=== PATIENT | male | born 1940 | race Caucasian/White ===

== ENCOUNTER 2016-11-05 12:02 | Day surgery (SDC) | payer OTHER ==
[2016-11-02 10:14] LABS: HEMATOCRIT 40.9 % (40.0-51.0)
[2016-11-02 10:19] LABS: BUN (BLOOD UREA NITROGEN) 31 MG/DL (6-23); CALCIUM, SERUM 8.9 MG/DL (8.5-10.4); CHLORIDE, SERUM 105 MMOL/L (96-112); CO2 (CARBON DIOXIDE) 28 MMOL/L (24-34); CREATININE 1.65 MG/DL (0.70-1.30); GFR AFRICAN AMERICAN 47 ML/MIN (>=60); GFR NON AFRICAN AMERICAN 40 ML/MIN (>=60); GLUCOSE, SERUM 104 MG/DL (60-99); POTASSIUM, SERUM 4.2 MMOL/L (3.5-5.3); SODIUM, SERUM 144 MMOL/L (135-148)
--- NOTE | ~2016-11-05 | OP ---
Record Of Operation [facility] [address] [place]. [address] NAME: LEO MATHEW : 44 STATUS : REG [facility] [place] PAT#: [id number] AGE: 76 ADM/REG DATE : 11/05/16 MR#: [id number] REPORT SERV DATE: 11/06/16 DICTATED BY: GROVER HARO DATE: 11/05/16 REPORT STATUS : Draft TRANSCRIBED BY: MODL DATE: 11/05/16 DATE OF PROCEDURE: 11/05/2016 PREOPERATIVE DIAGNOSIS: Right thyroid nodule suspicious for carcinoma on fine needle aspiration biopsy. POSTOPERATIVE DIAGNOSES: Two right side follicular nodules of low probability for carcinoma. PROCEDURE: Right hemithyroidectomy and isthmusectomy with NIM monitoring SURGEON: Grover Haro M.D. ANESTHESIA: General. COMPLICATIONS: None. COUNTS: All counts correct following the procedure. ESTIMATED BLOOD LOSS: 10 mL. PREOPERATIVE INFORMED CONSENT: We discussed risks and benefits of surgery including, but not limited to bleeding, infection, possible superior and/or recurrent laryngeal nerve injuring with resulting in temporary or permanent deficits, possible postoperative hypoparathyroidism, possible need for reoperation for completion thyroidectomy, possible postoperative hypoparathyroidism, he understands the risks and benefits of surgery and consent is on chart. OPERATIVE FINDINGS: The patient noted to have two lesions in the right lobe of the thyroid, also had pulmonary intraoperative PTH 154, right superior parathyroid gland was slightly enlarged and this was biopsied and showed some cellular gland but the serum calcium was 8.9, so at this point superior parathyroid we put 2 to 3 clips on if for later identification if necessary, frozen section came back consistent with benign follicular nodule, so procedure was abated at this point. DETAILS OF PROCEDURE: The patient was brought to the operating suite and placed on the operating table in the supine position. General endotracheal anesthesia was initiated without incident using a NIM monitoring endotracheal tube. The NIM monitoring electrode was placed on the patient. The NIM monitor was calibrated and noted to be functioning properly. Following this, a transverse incision was marked out 2 fingerbreadths above the sternal notch and injected with 1% lidocaine with 1:100,000 epinephrine for hemostasis. Following this, a #15-blade scalpel was used to make an incision down to the underlying subcutaneous tissues. Electrocautery was used to perform sharp dissection down through the platysma layer. The midline fascia was divided using electrocautery. The strap muscles were retracted laterally. Dissecting along the right capsular plane, the middle thyroid vein was dissected out and divided using the harmonic scalpel. The inferior pole vessels were Record Of Operation [facility] [address] [place]. [address] NAME: LEO MATHEW : 44 STATUS : REG [facility] [place] PAT#: [id number] AGE: 76 ADM/REG DATE : 11/05/16 MR#: [id number] REPORT SERV DATE: 11/06/16 DICTATED BY: GROVER HARO DATE: 11/05/16 REPORT STATUS : Draft TRANSCRIBED BY: BERNADETTE DATE: 11/05/16 dissected out and dissecting in the tracheoesophageal groove, the recurrent laryngeal nerve was identified and confirmed using the NIMH stimulator and preserved as it was followed up superiorly up to its insertion into the cricothyroid notch. The inferior pole vessels were then divided at the level of the capsule of the thyroid using the harmonic scalpel. The superior pole vessels were dissected out and the superior laryngeal nerve was identified and confirmed using the NIMH stimulator and preserved. The superior pole vessels were divided using the harmonic scalpel. The gland was further retracted medially and Lombardi's ligament was divided using the harmonic scalpel, bipolar cautery, and a #15-blade scalpel. The gland was further dissected off the anterior tracheal wall and divided just to the right of midline using the harmonic scalpel. The specimen was inspected and there was no evidence of any subcapsular parathyroid. The right side of the neck was irrigated with sterile saline and suctioned until clear. NIM monitor was used to stimulate the superior and recurrent laryngeal nerves and both were noted to be functioning properly. Following this, the platysmal layer was closed using a running 3-0 Vicryl suture. The skin was closed using a running 4-0 Prolene and subcuticular closure followed with Benzoin, Steri-Strips and Tegaderm dressing. The patient was awakened from anesthesia and taken to the recovery room in stable condition. JORGE/BERNADETTE Grover Haro M.D. / [id number] CC: Marguerite Velazco M.D.
[~2016-11-05 12:02] MED LIST: ACET500CAP PO; CARDU4 PO; L40 PO; NORV25 PO; PRIN20 PO; Z300 PO
[2016-11-05 14:58] LABS: PTH (INTRAOPERATIVE) 154.4 PG/ML (10.0-65.0); PTH TAT 0 Hrs 00 Mins
[2016-11-05 19:02] LABS: PTH (INTRAOPERATIVE) 74.5 PG/ML (10.0-65.0); PTH TAT 0 Hrs 27 Mins
== END 2016-11-05 23:59 | disposition home or self-care (01) ==
LOC: SDC 12:02
PROVIDERS: Otolaryngology
PROC: 0GTH0ZZ Resection of Right Thyroid Gland Lobe, Open Approach (ICD-10-PCS; principal; 2016-11-05 13:45)
DX: E04.1 Nontoxic single thyroid nodule (principal); I12.9 Hypertensive chronic kidney disease with stage 1 through stage 4 chronic kidney disease, or unspecified chronic kidney disease; N18.9 Chronic kidney disease, unspecified; N40.0 Benign prostatic hyperplasia without lower urinary tract symptoms; G47.30 Sleep apnea, unspecified; M19.90 Unspecified osteoarthritis, unspecified site; E66.01 Morbid (severe) obesity due to excess calories; Z68.39 Body mass index [BMI] 39.0-39.9, adult; Z85.850 Personal history of malignant neoplasm of thyroid; Z88.5 Allergy status to narcotic agent; Z96.652 Presence of left artificial knee joint; Z98.890 Other specified postprocedural states; Z79.899 Other long term (current) drug therapy
CPT/HCPCS: 80048; 83970; 85014; 85018; 88305; 88307; 88311; 88331; 88332; 88341; 88342; 93005; J0690; J2710; J3010